=== PATIENT | female | born 1950 | race Caucasian/White ===

== ENCOUNTER 2020-12-17 13:31 | Inpatient (IN) ==
[2020-12-17] MEDS ORDERED: ONDANSETRON 4 MG/2 ML VIAL IV PRN ×2 (14:10→16:39)
[2020-12-17] MEDS ORDERED: HYDROmorphone 2 MG/1 ML VIAL IV PRN (14:10)
[2020-12-17 14:20] LABS: Basophils % 0.3 % (0.0-0.8); Eosinophils # 0.1 10*3/uL (0.0-0.87); Eosinophils % 0.3 % (0.00-10.9); Hematocrit 45.6 VOL% (35.7-47.0); Hemoglobin 14.8 GM/DL (12.0-16.0); Immature Granulocytes % 0.4 %; Immature Granulocytes Absolute 0.06 #; Lymphocytes # 1.4 10*3/uL (1.4-4.0); Lymphocytes % 9.5 % (21.3-54.2); Mean Corpuscular HGB Conc 32.5 GM/DL (32-36); Mean Corpuscular Volume 89.2 FL (87-102); Mean Platelet Volume 11.4 FL (9.6-12.0); Neutrophils % 84.5 % (38.7-73.9); Platelet Count 247 T/CUMM (130-400); Red Blood Count 5.11 MC/CUMM (3.8-5.5); Red Cell Distribution Width 12.8 % (9.3-17.3)
[2020-12-17 14:30] LABS: INR 1.1; PT Patient Result 11.4 SECS (9.8-11.9); Partial Thromboplastin Time 28.9 SECS (23.9-33.8)
[2020-12-17] MEDS ORDERED: NITROGLYCERIN SL 0.4 MG TABLET SL PRN (14:39)
[2020-12-17] MEDS ORDERED: CETIRIZINE 10 MG TABLET PO PRN (14:39)
[2020-12-17] MEDS ORDERED: hydrALAZINE 20 MG/1 ML VIAL IV PRN (14:48)
[2020-12-17 14:49] LABS: Albumin 4.2 G/DL (3.4-5.0); Bilirubin,Total 0.4 MG/DL (0.2-1.0); Calcium 9.3 MG/DL (8.5-10.1); Potassium 3.9 MMOL/L (3.5-5.1); Total Protein 7.9 G/DL (6.4-8.2)
[2020-12-17] MEDS: ASPIRIN EC 81 MG TABLET PO SCH (15:00)
[2020-12-17] MEDS: carvediloL 3.125 MG TABLET PO SCH ×2 (15:00→21:52)
[2020-12-17 15:02] LABS: Bilirubin,Urine Negative (Negative); Blood, Urine Negative (Negative); Glucose,Urine (UA) Negative (Negative); Ketones,Urine 5 mg/dL (Negative); Mucus,Urine Occasional /LPF (Occasional); Nitrite,Urine Negative (Negative); Protein,Urine Negative; RBC,Urine 2 /HPF (0-4); Squamous Epithelial Cell,Urine Occasional /HPF (0-10); Urine Appearance CLEAR (Clear); Urine Color Yellow (Yellow); Urine Specific Gravity 1.017 (1.001-1.035); Urine Urobilinogen < 2.0 EU/DL (0.2-1.0); WBC,Urine <1 /HPF (0-6)
[2020-12-17] MEDS: ACETAMINOPHEN 325 MG TABLET PO PRN ×2 (15:59→22:04)
[2020-12-17] MEDS ORDERED: MORPHINE 4 MG/1 ML VIAL IV PRN ×2 (16:39→17:04)
[2020-12-17] MEDS ORDERED: ALUMINUM/MAGNES/SIMETH MAX STR 30 ML UDCUP PO PRN (16:39)
[2020-12-17] MEDS ORDERED: MAGNESIUM HYDROXIDE SUSP 30 ML UDCUP PO PRN ×2 (16:39→17:18)
[2020-12-17] MEDS: LACTATED RINGERS 1,000 ML IV SCH (17:14)
[2020-12-17] MEDS: DICYCLOMINE 10 MG CAPSULE PO SCH ×2 (17:14→21:58)
[2020-12-17] MEDS: DOCUSATE SODIUM 100 MG CAPSULE PO SCH (21:51)
[2020-12-17] MEDS: ROSUVASTATIN 10 MG TABLET PO SCH (21:52)
[2020-12-18] MEDS ORDERED: SCOPOLAMINE 1.5 MG PATCH TRANSDERM ONE (08:32)
[2020-12-18] MEDS ORDERED: propofoL 200 MG/20 ML VIAL IV ONE (08:36)
[2020-12-18] MEDS ORDERED: LIDOCAINE 2% 5 ML VIAL ONE (08:36)
[2020-12-18] MEDS ORDERED: MIDAZOLAM 2 MG/2 ML VIAL ONE (08:36)
[2020-12-18] MEDS ORDERED: ROCURONIUM 50 MG/5 ML VIAL IV ONE (08:36)
[2020-12-18] MEDS ORDERED: fentaNYL 100 MCG/2 ML VIAL ONE (08:36)
[2020-12-18] MEDS ORDERED: ROPIVACAINE 0.5% 30 ML VIAL ONE (08:48)
[2020-12-18] MEDS ORDERED: LIDOCAINE 1% 5 ML VIAL ONE (08:48)
[2020-12-18] MEDS ORDERED: CLINDAMYCIN INJ 50 ML IV ONE (08:55)
[2020-12-18] MEDS ORDERED: PHENYLEPHRINE 1 MG/10 ML SYRINGE IV ONE (09:33)
[2020-12-18] MEDS ORDERED: SEVOFLURANE 1 UNIT/15 MINUTE INH ONE ×4 (09:33→10:45)
[2020-12-18] MEDS ORDERED: DEXAMETHASONE 4 MG/1 ML VIAL ONE (09:44)
[2020-12-18] MEDS ORDERED: METOCLOPRAMIDE 10 MG/2 ML VIAL ONE (09:47)
[2020-12-18] MEDS ORDERED: NEOSTIGMINE 10 MG/10 ML VIAL ONE ×3 (10:10)
[2020-12-18] MEDS ORDERED: ONDANSETRON 4 MG/2 ML VIAL ONE ×2 (10:10)
[2020-12-18] MEDS ORDERED: GLYCOPYRROLATE 0.4 MG/2 ML VIAL ONE (10:11)
[2020-12-18] MEDS ORDERED: diphenhydrAMINE CAP 25 MG CAPSULE PO PRN (10:23)
[2020-12-18] MEDS ORDERED: BISACODYL 10 MG SUPP RECTAL PRN (10:23)
[2020-12-18] MEDS ORDERED: LACTULOSE 20 GM/30 ML UDCUP PO PRN (10:23)
[2020-12-18] MEDS: TIMOLOL 0.5% OPH SOLN 5 ML BOTTLE BOTH EYES SCH (11:36)
[2020-12-18] MEDS: lisinopriL 10 MG TABLET PO SCH (11:36)
[2020-12-18] MEDS: PANTOPRAZOLE 40 MG TABLET PO SCH (11:36)
[2020-12-18] MEDS: NIACIN 500 MG TABLET PO SCH (11:36)
[2020-12-18] MEDS: ASPIRIN EC 81 MG TABLET PO SCH (11:36)
[2020-12-18] MEDS: DICYCLOMINE 10 MG CAPSULE PO SCH ×4 (11:36→21:51)
[2020-12-18] MEDS: carvediloL 3.125 MG TABLET PO SCH ×2 (11:36→21:47)
[2020-12-18] MEDS: CLINDAMYCIN INJ 900 MG in PREMIX 1 EACH IV ONE ×2 (12:06→14:10)
[2020-12-18] MEDS: LACTATED RINGERS 1,000 ML IV SCH (14:10)
[2020-12-18] MEDS: CLINDAMYCIN INJ 900 MG in PREMIX 1 EACH IV SCH (16:44)
[2020-12-18] MEDS: DOCUSATE SODIUM 100 MG CAPSULE PO SCH (21:47)
[2020-12-18] MEDS: ROSUVASTATIN 10 MG TABLET PO SCH (21:47)
[2020-12-18] MEDS: FONDAPARINUX 2.5 MG/0.5 ML SYRINGE SUBCUT SCH (21:47)
[2020-12-19] MEDS: CLINDAMYCIN INJ 900 MG in PREMIX 1 EACH IV SCH ×2 (00:59→08:41)
[2020-12-19 05:05] LABS: Basophils % 0.2 % (0.0-0.8); Hemoglobin 11.5 GM/DL (12.0-16.0); Immature Granulocytes % 0.5 %; Immature Granulocytes Absolute 0.06 #; Lymphocytes # 1.4 10*3/uL (1.4-4.0); Lymphocytes % 11.8 % (21.3-54.2); Mean Corpuscular HGB Conc 32.9 GM/DL (32-36); Mean Corpuscular Volume 87.7 FL (87-102); Mean Platelet Volume 11.8 FL (9.6-12.0); Monocytes % 11.2 % (1.7-12.7); Neutrophils % 76.3 % (38.7-73.9); Platelet Count 167 T/CUMM (130-400); Red Blood Count 3.99 MC/CUMM (3.8-5.5); Red Cell Distribution Width 13.2 % (9.3-17.3); White Blood Count 11.7 T/CUMM (4-12)
[2020-12-19 05:42] LABS: Calcium 8.7 MG/DL (8.5-10.1); Osmolality,Calculated 279.4 MOS/KG (273-304); Potassium 4.3 MMOL/L (3.5-5.1)
[2020-12-19] MEDS: PANTOPRAZOLE 40 MG TABLET PO SCH (08:39)
[2020-12-19] MEDS: ASPIRIN EC 81 MG TABLET PO SCH (08:39)
[2020-12-19] MEDS: NIACIN 500 MG TABLET PO SCH (08:39)
[2020-12-19] MEDS: carvediloL 3.125 MG TABLET PO SCH ×2 (08:39→20:10)
[2020-12-19] MEDS: lisinopriL 10 MG TABLET PO SCH (08:39)
[2020-12-19] MEDS: TIMOLOL 0.5% OPH SOLN 5 ML BOTTLE BOTH EYES SCH (08:41)
[2020-12-19] MEDS: DICYCLOMINE 10 MG CAPSULE PO SCH ×4 (08:41→20:10)
[2020-12-19] MEDS: ROSUVASTATIN 10 MG TABLET PO SCH (20:10)
[2020-12-19] MEDS: FONDAPARINUX 2.5 MG/0.5 ML SYRINGE SUBCUT SCH (20:10)
[2020-12-19] MEDS: DOCUSATE SODIUM 100 MG CAPSULE PO SCH (20:10)
[2020-12-20] MEDS ORDERED: TUBERCULIN SKIN TEST 0.1 ML SYRINGE INTRADERM ONE (07:43)
[2020-12-20] MEDS: NIACIN 500 MG TABLET PO SCH (09:05)
[2020-12-20] MEDS: ASPIRIN EC 81 MG TABLET PO SCH (09:05)
[2020-12-20] MEDS: carvediloL 3.125 MG TABLET PO SCH (09:05)
[2020-12-20] MEDS: lisinopriL 10 MG TABLET PO SCH (09:05)
[2020-12-20] MEDS: PANTOPRAZOLE 40 MG TABLET PO SCH (09:05)
[2020-12-20] MEDS: DICYCLOMINE 10 MG CAPSULE PO SCH (09:06)
[2020-12-20] MEDS: TIMOLOL 0.5% OPH SOLN 5 ML BOTTLE BOTH EYES SCH (09:06)
[2020-12-20 11:40] VITALS: BP 137/62
[2020-12-21] MEDS ORDERED: NIACIN 500 MG TABLET PO SCH (21:00)
== END 2020-12-20 12:09 | DRG 482 ==
LOC: N.ED 13:31 → N.EDINP 16:39 → N.3E 17:31
PROVIDERS: ADMIT Orthopaedic Surgery; ATTEND Orthopaedic Surgery